=== PATIENT | female | born 1960 | race Caucasian/White ===

== ENCOUNTER → 2016-11-16 | Outpatient (CLI) | payer BC ==
[~2016-11-16] MED LIST: MOTRIN 600600 MG/TAB PO; NO HOME MEDICATIONS; PERCOCET 325 MG1 TA2 PO
== END ==
LOC: MC.RAD 06:58
DX: Z12.31 Encounter for screening mammogram for malignant neoplasm of breast (principal)

== ENCOUNTER → 2017-11-22 | Outpatient (CLI) | payer BC | LOC: MC.RAD 07:20 | DX: Z12.31 Encounter for screening mammogram for malignant neoplasm of breast (principal) ==

== ENCOUNTER → 2018-12-01 | Outpatient (CLI) | payer BC | LOC: MC.RAD 09:50 | DX: Z12.31 Encounter for screening mammogram for malignant neoplasm of breast (principal) ==

== ENCOUNTER → 2019-12-04 | Outpatient (CLI) | payer BC | LOC: MC.RAD 07:21 | DX: Z12.31 Encounter for screening mammogram for malignant neoplasm of breast (principal); Z98.82 Breast implant status ==

== ENCOUNTER → 2021-01-09 | Outpatient (CLI) | payer OTHER | LOC: MC.RAD 10:56 | DX: Z12.31 Encounter for screening mammogram for malignant neoplasm of breast (principal) ==

== ENCOUNTER → 2022-02-03 | Outpatient (CLI) | payer OTHER | LOC: MC.RAD 11:03 | DX: Z12.31 Encounter for screening mammogram for malignant neoplasm of breast (principal) ==

== ENCOUNTER → 2023-02-09 | Outpatient (CLI) | payer OTHER | LOC: MC.RAD 15:20 | DX: Z12.31 Encounter for screening mammogram for malignant neoplasm of breast (principal) ==